=== PATIENT | female | born 1995 | race Caucasian/White ===

== ENCOUNTER 2025-06-08 17:19 | Emergency (ER) | payer MEDICAID ==
[~2025-06-08] VITALS: Ht 165.1 cm; Wt 110.0 kg
[~2025-06-08 17:19] MED LIST: FAMO-135 MT; LOSA50TA41 MT; NIFE-32 MT
[2025-06-08 17:20] VITALS: O2SAT 97
[2025-06-08] MEDS: LIDOCAINE 5% PATCH TOP ONE (18:15)
[2025-06-08 19:22] LABS: BASOPHILS % 0.4 % (0.0-2.0); EOSINOPHILS % 0.6 % (0.0-5.0); HEMATOCRIT. 42.6 % (36.0-48.0); HEMOGLOBIN. 14.6 g/dL (12.0-16.0); LYMPHOCYTES % 34.2 % (20.0-50.0); MEAN PLATELET VOLUME 7.9 fl (7.4-10.4); MONOCYTES % 6.3 % (2.0-8.0); NEUTROPHILS % 58.5 % (40.0-76.0); PLATELET 428 x1000/uL (130-400); RED BLOOD CELL COUNT 4.83 mill/uL (4.2-5.4); RED CELL DISTRIBUTION WIDTH 12.8 % (11.6-14.6)
[2025-06-08 19:32] LABS: INR 1.0
[2025-06-08 19:37] LABS: HCG SCREEN NEGATIVE
[2025-06-08 19:38] LABS: TROPONIN I HIGH SENSITIVITY 10 ng/L (3.0-34)
[2025-06-08 19:39] LABS: ASPARTATE AMINOTRANSFERASE 48 IU/L (<34); CREATININE 0.7 mg/dL (0.6-1.0); UREA NITROGEN BLOOD 10 mg/dL (9-23)
[2025-06-08 19:41] LABS: BILIRUBIN DIRECT 0.2 mg/dL (<=3.0); BILIRUBIN TOTAL 0.8 mg/dL (0.1-1.0); PROTEIN TOTAL 8.0 g/dL (6.0-8.3)
[2025-06-08 21:15] VITALS: TEMP 37.1
[2025-06-08] MEDS ORDERED: LIDO700A30 TP (21:33)
[2025-06-08 22:01] VITALS: BP 149/100; PULSE 98; RESP 13; O2SAT 99
[2025-06-08] MEDS ORDERED: IOHEXOL-350 100 ML BOTTLE ONE (22:08)
== END 2025-06-08 22:04 | disposition home or self-care (01) ==
LOC: ER 17:19
DX: S39.012A Strain of muscle, fascia and tendon of lower back, initial encounter (principal); K76.0 Fatty (change of) liver, not elsewhere classified; I10 Essential (primary) hypertension; E11.9 Type 2 diabetes mellitus without complications; Z79.899 Other long term (current) drug therapy; X58.XXXA Exposure to other specified factors, initial encounter; Y93.89 Activity, other specified; Y92.89 Other specified places as the place of occurrence of the external cause; Y99.8 Other external cause status
CPT/HCPCS: 99285; 74174; 71275; 80076; 80048; 84703; 83880; 83735; 85025; 85610; 85730; 86850; 86900; 86901; 84484; 36415; Q9967